=== PATIENT | male | born 1945 | race Two or more races ===

== ENCOUNTER → 2024-07-16 | Emergency (ER) | payer OTHER ==
[~2024-07-16] VITALS: Ht 172.7 cm; Wt 84.4 kg
[~2024-07-16] MED LIST: AMLODIPINE BESYL5 MG; COZAAR50 MG; LIPITOR20 MG; XARELTO15 MG
[2024-07-16 10:17] LABS: HEMATOCRIT 42.8 % (39.0-48.0); HEMOGLOBIN 14.3 g/dL (13-16.00); MEAN CELL VOLUME 96.6 fL (80.0-100.00); MEAN CORPUSCULAR HEMOGLOBIN 32.3 pg (27.00-32.0); MEAN CORPUSCULAR HGB CONC 33.4 g/dl (32.0-36.0); PLATELET COUNT 205 K/uL (150-450); RED BLOOD COUNT 4.43 M/uL (4.00-6.00); RED CELL DISTRIBUTION WIDTH 13.3 % (11.5-14.5)
== END | disposition home or self-care (01) ==
LOC: ER 09:06
PROVIDERS: General Practice
DX: J06.9 Acute upper respiratory infection, unspecified (principal); R05.8 Other specified cough; E78.00 Pure hypercholesterolemia, unspecified; I48.91 Unspecified atrial fibrillation; I10 Essential (primary) hypertension; Z20.822 Contact with and (suspected) exposure to COVID-19